=== PATIENT | female | born 1995 | race Caucasian/White ===

== ENCOUNTER 2020-12-29 10:48 | Emergency (ER) | payer BC, SELFPAY ==
--- NOTE | ~2020-12-29 | XR_ITS ---
XR finger 1st LT min 2V DATE: 12/29/2020 11:15 INDICATION: Hyperextension injury. First metacarpal pain. TECHNIQUE: 3 views COMPARISON: None FINDINGS: No fracture or dislocation, periosteal reaction or bone destruction is detected. No radiopa que foreign body or subcutaneous emphysema. IMPRESSION: No significant abnormality Reviewed, dictated and finalized at location B. IMPRESSION: No significant abnormality
[2020-12-29 10:59] VITALS: BP 118/91; PULSE 107; RESP 14; TEMP 37.2; O2SAT 99
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
== END 2020-12-29 11:39 | disposition home or self-care (01) ==
PROVIDERS: Emergency Provider Nurse Practitioner
DX: S69.92XA Unspecified injury of left wrist, hand and finger(s), initial encounter (principal); X58.XXXA Exposure to other specified factors, initial encounter; J45.909 Unspecified asthma, uncomplicated; F41.9 Anxiety disorder, unspecified
CPT/HCPCS: 29130; 73140; 99213; G0463